=== PATIENT | female | born 1980 | race Caucasian/White ===

== ENCOUNTER 2016-06-02 14:52 | Emergency (ER) | payer MEDICAID ==
[~2016-06-02] VITALS: Ht 170.2 cm; Wt 80.2 kg
[~2016-06-02 14:52] MED LIST: ALBU8.5H2 IH; ALBU8.5H6 IH; AZIT250T81 PO; CEFD300C PO; CITA40TA19 PO; CITA40TA5 PO; CYCL10TA45 PO; DIAZ5TAB3 PO; DIAZ5TAB49 PO; ESTR0.5T PO; ESTR1TAB24 PO; FURO-124 PO; HYDR-33 PO; HYDR-3702 PO; HYDR-3881 PO; HYDR-87 PO; LORA1TAB PO; LTH300C PO; NAPR500T3 PO; NAPR550T PO; NF-ADDXR30 PO; OXAP600T2 PO; PRCD5U PO; PROM25TA14 PO; PROM50TA3 PO; PROP40TA5 PO; SUMA50TA14 PO; TRM50T PO; VARE1TAB PO; ZOLP5TAB PO
--- NOTE | 2016-06-02 15:55 | NUR ---
Mom and daughter are sound asleep on the bed.
[2016-06-02] MEDS ORDERED: HYDROmorphone 2 MG/ML (DILAUDID) 1 ML SYRINGE IM ONE (16:10)
[2016-06-02] MEDS ORDERED: ONDANSETRON 4 MG (ZOFRAN) ORAL DISSOLVE TAB PO ONE (16:10)
[2016-06-02 16:23] VITALS: BP 114/85
== END 2016-06-02 16:26 | disposition home or self-care (01) ==
LOC: ED 14:54
DX: M54.5 Low back pain (principal)
CPT/HCPCS: 96372; 99282; A9270; J1170